=== PATIENT | male | born 1945 | race Caucasian/White ===

== ENCOUNTER 2016-06-07 19:40 | Emergency (ER) | payer OTHER, BC, MEDICARE ==
[~2016-06-07] VITALS: Ht 180.3 cm; Wt 93.0 kg
[~2016-06-07 19:40] MED LIST: CIPRO500 M1 PO; COLACE100 M1 PO; METRONIDAZOLE500 M1 PO; PERCOCET 5-3251 EACH PO; PRAVASTATIN SOD40 M2 PO
--- NOTE | 2016-06-07 21:19 | ED GI/GU/ABDOMINAL COMPLAINT ---
History of Present Illness General Chief Complaint: General Adult Stated Complaint: RIGHT SIDE PAIN, NAUSEA PER PT Source: patient Exam Limitations: no limitations Vital Signs & Intake/Output Vital Signs & Intake/Output Vital Signs Date Time Temp Pulse Resp B/P Pulse O2 O2 Flow FiO2 Ox Delivery Rate 06/08 0223 98.8 74 18 128/72 97 Room Air 06/07 2253 98.9 68 18 122/68 99 Room Air 06/07 1956 97.8 81 18 120/70 96 Room Air ED Intake and Output 06/08 0000 06/07 1200 Intake Total Output Total Balance Patient 205 lb Weight Allergies Coded Allergies: NO KNOWN ALLERGIES (08/27/10) Triage Note: PT STATES 2 DAYS AGO RIGHT SIDE DULL PAIN.. PT STATES LAST NIGHT VOMITTED. PT IS 08/31 PT STATES HE STILL FEELS NAUSEOUS Triage Nurses Notes Reviewed? yes Duration: constant Timing: recent history Quality/Severity: cramping Location: right flank, right upper quadrant Radiation: no radiation Activities at Onset: none HPI: Patient is a 71-year-old male with a past medical history of non-Hodgkin's lymphoma currently in remission approximately 3 years ago, osteoarthritis sciatica and hyperlipidemia who presents emergent with a 3 day history of right- sided persistent moderate flank abdominal pain. Patient states that eating changes no symptoms. Last bowel movement was within last 24 hours no blood no melena noted. Denies any fever chills testicular pain or swelling back pain cough shortness of breath chest pain. Patient states that lumbar spine movements changes no symptoms and denies any mechanism injury. Patient did have last night 1 episode of nonbloody nonbilious emesis after multiple episodes prior of belching. Patient has been able tolerate by mouth today with no change in symptoms. Patient states that palpation makes worse (DANIELLA WATTERS,NABIL) Reconcile Medications Ciprofloxacin HCl (Cipro) 500 MG TABLET 1 TAB PO BID INFECTION Meloxicam 7.5 MG TABLET 1 TAB PO BID ARTHRITIS (Reported) Metronidazole (Flagyl) 500 MG TABLET 1 TAB PO TID DIVERTICULITIS Oxycodone HCl/Acetaminophen (Percocet 5-325 MG Tablet) 5 MG-325 MG TABLET 1 TAB PO Q4-6 PRN BREAKTHROUGH PAIN Pravastatin Sodium 40 MG TABLET 1 TAB PO QPM CHOLESTEROL (Reported) (OZIEL MORELAND,HOLGER) Past History Travel History Traveled to [place] past 21 day No Medical History Any Pertinent Medical History? see below for history Cardiovascular: hypertension, hyperlipidemia Musculoskeletal: ARTHRITIS Cancer(s): non-hodgkin lymphoma Surgical History Surgical History: non-contributory Psychosocial History What is your primary language Thai Tobacco Use: Never used Family History Hx Contributory? No (NABIL CASTELLANOS) Review of Systems Review of Systems Constitutional: Reports: no symptoms. EENTM: Reports: no symptoms. Respiratory: Reports: no symptoms. Cardiovascular: Reports: no symptoms. GI: Reports: see HPI, abdominal pain. Genitourinary: Reports: no symptoms. Musculoskeletal: Reports: no symptoms. Skin: Reports: no symptoms. Neurological/Psychological: Reports: no symptoms. Hematologic/Endocrine: Reports: no symptoms. Immunologic/Allergic: Reports: no symptoms. All Other Systems: Reviewed and Negative (NABIL CASTELLANOS) Physical Exam Physical Exam General Appearance: no apparent distress, alert Gastrointestinal: normal bowel sounds, soft, MODERATE RIGHT UPPER QUADRANT AND RIGHT FLANK POINT TENDERNESS NO RIGHT LOWER QUADRANT TENDERNESS NO PERITONEAL SIGNS Comments: Well-developed well-nourished person in no acute distress HEENT: Normal EENT exam, Neck: Supple, no lymphadenopathy, normal range of motion without pain or tenderness Back: Nontender, no CVA tenderness. Cardiovascular: Regular rate and rhythms no murmurs rubs or gallops, normal JVP Respiratory: Chest nontender. No respiratory distress.breath sounds clear to auscultation bilaterally Extremity: No edema, no calf tenderness to palpation, normal and equal pulses. Neuro: Alert oriented x3, motor sensory normal, Skin: No appreciable rash on exposed skin, skin is warm and dry. Psych: Mood and affect is normal, memory and judgment is normal. Core Measures ACS in differential dx? No Severe Sepsis Present: No Septic Shock Present: No (NABIL CASTELLANOS) Progress Differential Diagnosis: AAA, AMI, appendicitis, biliary colic, bowel obstruction , colon cancer, cholecystitis, diverticulitis, epididymitis, esophageal varices, gastritis, hepatitis, hernia, hemorrhoids, ischemic bowel, inflamm bowel dis, Lu[place] tear, orchitis, pancreatitis, prostatitis, peptic ulcer, PUD/GERD, perforated viscous, pyelonephritis, SBO, testicular torsion, ureterolithiasis, urinary retention, urethritis, UTI/pyelo Plan of Care: Orders Procedure Date/time Status LIPASE 06/07 2133 Complete COMPREHENSIVE METABOLIC PANEL 06/07 2133 Complete CBC WITHOUT DIFFERENTIAL 06/07 2133 Complete AMYLASE 06/07 2133 Complete URINALYSIS 06/08 2131 Complete Laboratory Tests 06/07/162142: Anion Gap 12, Estimated GFR > 60, BUN/Creatinine Ratio 28.6 H, Glucose 128 H, Calcium 8.7, Total Bilirubin 0.8, AST 15 L, ALT 33, Alkaline Phosphatase 80, Total Protein 6.7, Albumin 4.1, Globulin 2.6, Albumin/Globulin Ratio 1.6, Amylase < 30 L, Lipase 73, CBC w Diff NO MAN DIFF REQ, RBC 5.24, MCV 84.8, MCH 28.0, RDW 13.9, MPV 7.9, Gran % 67.0, Lymphocytes % 20.3 L, Monocytes % 10.9 H , Eosinophils % 1.7, Basophils % 0.1, Absolute Granulocytes 9.8 H, Absolute Lymphocytes 3.0, Absolute Monocytes 1.6 H, Absolute Eosinophils 0.3, Absolute Basophils 0, PUBS MCHC 33.0 06/07/162132: Urine Color YEL, Urine Clarity CLEAR, Urine pH 6.0, Ur Specific [place] 1.025, Urine Protein TRACE H, Urine Ketones TRACE H, Urine Nitrite NEG, Urine Bilirubin NEG, Urine Urobilinogen 1.0, Ur Leukocyte Esterase TRACE H, Ur Microscopic SEDIMENT EXAMINED, Urine RBC RARE, Urine WBC 1-3 H, Ur Epithelial Cells RARE, Urine Bacteria RARE H, Urine Mucus RARE, Urine Hemoglobin NEG, Urine Glucose NEG Patient currently is resting comfortably in no apparent distress. Blood work did note 15 K leukocytosis Discussed patient with Dr. LUDWIG who agrees with handoff in which patient's disposition AND plan currently pending CT scan CT SCAN AT [facility] IS NONFUNCTIONING HE WILL BE SENT TO ANOTHER FACILITY FOR IMAGING HE AGREE WITH PLAN. (DANIELLA WATTERS,NABIL) 11:08 PM PATIENT SIGNED OUT TO ME BY DUONG BREWER. PENDING CT ABDOMEN. 1:20 AM PATIENT ARRIVED BACK FROM [facility]. PENDINT CT READ. 5:31 AM vice president of consulting services called from [facility] to indicate that his attending over read the CAT scan and thinks that there is acute sigmoid perforation or free air. They will fax over the amended report. Patient called - I informed him i sent a prescription for cipro/flagyl to [facility] which he will picking tech today. He is aware that there is sigmoid diverticulitis on CT. (HOLGER LUDWIG MD) Initial ED EKG: none Hand-Off Endorsed To: HOLGER LUDWIG MD Endorsed Time: 2233 Pending: CT (NABIL CASTELLANOS) Diagnostic Imaging: Viewed by Me: CT Scan. Discussed w/RAD: CT Scan. Radiology Impression: CT SCAN - SEE ATTACHED REPORT NO ACUTE ABNORMALITY UNCTATE ? STONE RIGHT KIDNEY NO HYDRO NO DIVERITULITIS ENLARGED POTACAVAL NODE (HOLGER LUDWIG MD) Departure Departure Condition: Stable Referrals: ASHWIN GOLDSMITH DO (PCP/Family) Departure Forms: Customer Survey General Discharge Information (NABIL CASTELLANOS) Departure Time of Disposition: 208 Disposition: HOME OR SELF CARE Clinical Impression Primary Impression: Diverticulitis Secondary Impressions: Renal stone Additional Instructions: FOLLOW UP WITH YOUR DOCTOR IN THE OFFICE. I AM ATTACHING A PRELIMINARY REPORT OF THE CT SCAN FOR YOU TO TAKE TO YOUR DOCTOR. RETURN TO THE ER NEEDED. Prescriptions: Current Visit Scripts Oxycodone HCl/Acetaminophen (Percocet 5-325 MG Tablet) 1 TAB PO Q4-6 PRN BREAKTHROUGH PAIN #10 TAB Ciprofloxacin HCl (Cipro) 1 TAB PO BID #20 TAB Metronidazole (Flagyl) 1 TAB PO TID #30 TAB (HOLGER LUDWIG MD)
[2016-06-07] MEDS ORDERED: MELOXICAM7.5 M1 PO (21:49)
[2016-06-07 21:51] LABS: ABSOLUTE BASOPHIL COUNT 0 /CUMM (0.0-0.2); ABSOLUTE EOSINOPHIL COUNT 0.3 /CUMM (0.0-0.7); ABSOLUTE GRANULOCYTE CT 9.8 /CUMM (1.4-6.5); ABSOLUTE MONOCYTE COUNT 1.6 /CUMM (0.10-0.60); BASOPHIL % 0.1 % (0.0-2.0); EOSINOPHIL % 1.7 % (0-5); HEMATOCRIT 44.4 % (42-52); MEAN CORPUSCULAR VOLUME 84.8 FL (80.0-94.0); MEAN PLATELET VOLUME 7.9 FL (7.4-10.4); PLATELET COUNT 217 /CUMM (130-400); RBC DISTRIBUTION WIDTH 13.9 % (11.5-14.5); RED BLOOD CELL CT 5.24 /CUMM (4.70-6.10); WHITE BLOOD CELL COUNT 14.6 /CUMM (4.8-10.8)
[2016-06-08] MEDS ORDERED: PERCOCET 5-3251 EACH PO (02:18)
[2016-06-08 02:23] VITALS: BP 128/72
[2016-06-08] MEDS ORDERED: CIPRO500 M1 PO (05:32)
[2016-06-08] MEDS ORDERED: FLAGYL500 MG PO (05:32)
== END 2016-06-08 02:25 ==
LOC: ERH 19:40
PROVIDERS: Physician Assistant
DX: K57.92 Diverticulitis of intestine, part unspecified, without perforation or abscess without bleeding (principal); N20.0 Calculus of kidney
CPT/HCPCS: 81001